=== PATIENT | female | born 1990 | race Caucasian/White ===

== ENCOUNTER 2019-09-27 08:09 | Emergency (ER) | payer OTHER ==
[2019-09-27 08:19] VITALS: BP 131/85; PULSE 107; BMI 25.9
[2019-09-27 08:24] VITALS: TEMP 97.2
--- NOTE | 2019-09-27 08:44 | PDOC ---
History of Present Illness - General Chief Complaint: Cold Symptoms Stated Complaint: ALLERGIES/ FEVER Time Seen by Provider: 09/27/19 08:23 History Source: Patient Exam Limitations: No Limitations Past History - Past Medical History Allergies/Adverse Reactions: Allergies Allergy/AdvReac Type Severity Reaction Status Date / Time No Known Allergies Allergy Verified 09/27/19 08:17 Home Medications: Ambulatory Orders NK [No Known Home Medication] 06/02/17 Asthma: No Cancer: No Cardiac Disorders: No COPD: No Diabetes: No HTN: No Seizures: No Thyroid Disease: No - Immunization History Immunization Up to Date: No - Psycho Social/Smoking Cessation Hx Smoking History: Never smoked Information on smoking cessation initiated: No Hx Alcohol Use: No Drug/Substance Use Hx: No Substance Use Type: None Hx Substance Use Treatment: No *Physical Exam - Vital Signs Last Vital Signs Temp Pulse Resp BP Pulse Ox 97.2 F L 107 H 18 131/85 99 09/27/19 08:17 09/27/19 08:17 09/27/19 08:17 09/27/19 08:17 09/27/19 08:17 - Physical Exam General Appearance: No: Apparent Distress HEENT: positive: Pharynx Normal Respiratory/Chest: positive: Lungs Clear, Normal Breath Sounds. negative: Respiratory Distress Cardiovascular: positive: Regular Rhythm, Regular Rate, S1, S2. negative: Murmur Gastrointestinal/Abdominal: positive: Normal Bowel Sounds, Soft. negative: Tender, Distended, Guarding, Rebound Neurologic: positive: Alert ED Treatment Course - RADIOLOGY Radiology Studies Ordered: Category Date Time Status CHEST PA & LAT [RAD] Stat Radiology 09/27/19 08:34 Ordered Medical Decision Making - Medical Decision Making 29 y/o F with no sig pmh presents with fever and chills x 3 days. Mentions had low grade fever of 99 the past 2 days and today had temp of 101. Took Tylenol in the morning. Mentions she went to urgent care 2 days ago and told she had viral URI and was prescribed allergy meds, Zyrtec and Flonase. States she also had flu swab done 2 days ago which was negative. Denies cough, congestion, rhinorrhea, sob, cp, abd pain, n/v, urinary sxs, recent travel, exposure to sick contacts. Likely viral URI Plan: CXR to r/o PNA 09/27/19 08:39 CXR negative 09/27/19 08:58 Discharge - Discharge Information Problems reviewed: Yes Clinical Impression/Diagnosis: Viral URI Condition: Stable Disposition: HOME - Admission No - Additional Discharge Information Prescription Drug Monitoring Program (I-STOP) results: I-STOP not reviewed - Follow up/Referral - Patient Discharge Instructions Patient Printed Discharge Instructions: DI for Viral Upper Respiratory Infection -- Adult Additional Instructions: Thank you for choosing [facility]. It was a pleasure taking care of you. You have viral infection Alternate between Tylenol every 4 and Motrin every 6 hours as needed for fever Recommend rest and hydration Follow-up with your doctor in 2 days Return to the Emergency Department if your symptoms worsen or persist or have other concerning symptoms. - Post Discharge Activity
== END 2019-09-27 09:17 | disposition home or self-care (01) ==
LOC: JERFT 08:09
DX: J06.9 Acute upper respiratory infection, unspecified (principal); B97.89 Other viral agents as the cause of diseases classified elsewhere
CPT/HCPCS: 71046-TC-FY; 99283-25